=== PATIENT | male | born 1955 | race Caucasian/White ===

== ENCOUNTER 2017-10-05 02:25 | Observation (INO) | payer MEDICARE, OTHER ==
[~2017-10-05] VITALS: Ht 172.7 cm; Wt 89.6 kg
[2017-10-05] VITALS (10 sets, daily range): BP systolic 154–185; BP diastolic 81–88; PULSE 60–77; RESP 18–20; TEMP 97.2–98.8; O2SAT 95–99
[2017-10-05 01:22] LABS: TROPONIN I LESS THAN 0.02 NG/ML (0.02-0.05)
[~2017-10-05 02:25] MED LIST: ACETAMINOPHEN 500 MG CPLT PO PRN; AMLO2.5T PO; GABA600T PO; MOBI7.5T PO; MORPHINE SULFATE 4 MG/ML INJ IV PUSH PRN; NITROGLYCERIN 0.4 MG SL 25 TABS/BTL SL PRN; OXYC1CAP PO; SODIUM CHLORIDE 0.9% FLUSH 10 ML FLUSH IV FLUSH PRN
[2017-10-05] MEDS ORDERED: FAMOTIDINE 20 MG TAB PO ONE (03:30)
[2017-10-05] MEDS: ACETAMINOPHEN/HYDROcodone 325 MG/7.5 MG TAB PO PRN ×2 (03:43→08:40)
[2017-10-05 05:03] LABS: TROPONIN I LESS THAN 0.02 NG/ML (0.02-0.05)
[2017-10-05] MEDS: HEPARIN SODIUM - SQ 10,000 UNITS/ML VIAL SQ SCH ×3 (06:03→20:33)
[2017-10-05] MEDS: SODIUM CHLORIDE 0.9% FLUSH 10 ML FLUSH IV FLUSH SCH ×2 (08:41→20:32)
[2017-10-05] MEDS ORDERED: FAMOTIDINE 20 MG TAB PO SCH (09:00)
--- NOTE | 2017-10-05 09:04 | HHI.HP ---
[facility] [place] Unknown Admission Diagnosis Chest pain Diagnoses: Chief Complaint: Chest pain Travel History International Travel<30 Days: No Contact w/Intl Traveler <30 Da: No Traveled to Known Affected Are: No History of Present Illness This is a 62-year-old male patient with a known medical history of tobacco abuse who presented to the ED with complaints of not feeling well with chest pressure. Patient states that yesterday developed a left upper quadrant pain in his abdomen with associated shortness of breath and some left arm cramping and chest pressure. Patient states he took his blood pressure at home and was elevated and took an extra dose of his blood pressure medicine. At that time symptoms had improved. He does state that the chest pressure was in his midsternal chest, was intermittently sharp in nature and lasted roughly an hour. He denies any known alleviating or aggravating factors. He does admit to associated diaphoresis, denies any shortness of breath, nausea or vomiting. He denies ever having this type of pain before. He has never followed with a ship purser. Nor has he ever gotten a stress test in the past. He denies having any cardiac history except for hypertension and takes medicine for this which controls it well. Review of Systems Constitutional: COMPLAINS OF: Chills, DENIES: Fatigue, Fever Eyes: DENIES: Blurred vision, Diplopia Respiratory: DENIES: Cough, Sputum production, Shortness of breath Cardiovascular: COMPLAINS OF: Chest pain, Palpitations Gastrointestinal: DENIES: Abdominal pain, Black stools, Bloody stools, Constipation, Diarrhea, Nausea, Vomiting Musculoskeletal: DENIES: Joint pain Hematologic/lymphatic: DENIES: Bruising Psychiatric: DENIES: Anxiety Except as stated in HPI: all other systems reviewed are Neg Past Family Social History Past Medical History Tobacco abuse Hypertension Chronic back pain on narcotics Past Surgical History Denies any prior surgery. Reported Medications Active Reported Amlodipine (Amlodipine Besylate) 2.5 Mg Tab 2.5 Mg PO DAILY Oxycodone (Oxycodone HCl) 5 Mg Cap Unknown Dose PO Q4H PRN Gabapentin 600 Mg Tab 600 Mg PO BID Mobic (Meloxicam) 7.5 Mg Tab 7.5 Mg PO DAILY Allergies: Coded Allergies: No Known Allergies (Unverified , 10/04/17) Active Ordered Medications Current Medications Medications (Trade) Dose Ordered Sig/Jeffy Route Start Time Stop Time Status Last Admin (NS Flush) 2 ml UNSCH PRN IV FLUSH 10/05/17 00:30 (NS Flush) 2 ml BID IV FLUSH 10/05/17 09:00 10/05/17 08:41 (Tylenol) 500 mg Q4H PRN PO 10/05/17 00:30 (Nitrostat Sl) 0.4 mg Q5M PRN SL 10/05/17 00:30 (Heparin Inj) 5,000 units Q8HR SQ 10/05/17 06:00 10/05/17 06:03 (Pepcid) 20 mg Q12H PO 10/05/17 18:00 (Norvasc) 2.5 mg DAILY PO 10/05/17 10:00 10/05/17 10:52 (Neurontin) 600 mg BID PO 10/05/17 21:00 (Mobic) 7.5 mg DAILY PO 10/05/17 10:00 10/05/17 10:53 (Roxicodone) 5 mg Q4H PRN PO 10/05/17 09:15 10/05/17 10:52 (Aspirin Chew) 81 mg DAILY CHEW 10/05/17 10:00 10/05/17 10:52 (Pill Splitter) 1 ea UNSCH PRN OTHER 10/05/17 09:15 Family History Maternal medical history significant for DM and HTN Paternal medical history significant for TN at age of 70. Social History Admits 1/2 ppd since his teen years. Admits to drinking alcohol 3-4 x per week. Physical Exam Vital Signs Vital Signs Date Time Temp Pulse Resp B/P (MAP) Pulse Ox O2 Delivery O2 Flow Rate FiO2 10/05/17 08:05 99 21 10/05/17 08:00 97.2 63 18 154/83 (106) 96 10/05/17 04:40 66 10/05/17 03:40 96 21 10/05/17 02:35 98.0 60 20 185/81 (115) 96 Physical Exam GENERAL: Well-developed, well-nourished patient in [place]. SKIN: Warm and dry. No rash. HEAD: Normocephalic. Atraumatic. EYES: Pupils equal and round. No scleral icterus. No injection or drainage. ENT: No nasal bleeding or discharge. Mucous membranes pink and moist. NECK: Supple. Trachea midline. CARDIOVASCULAR: Regular rate and rhythm. S1, S2 noted. No murmur appreciated. No chest pain to palpation. RESPIRATORY: No accessory muscle use. Clear to auscultation. Breath sounds equal bilaterally. GASTROINTESTINAL: Abdomen soft, non-tender, nondistended. Normoactive bowel sounds x4. MUSCULOSKELETAL: No obvious deformities. Extremities without clubbing, cyanosis , or edema. NEUROLOGICAL: Awake and alert. No obvious cranial nerve deficits. Motor grossly within normal limits. 5/5 muscle strength in bilateral upper and lower extremities. Normal speech. PSYCHIATRIC: Appropriate mood and affect; insight and judgment normal. Laboratory Laboratory Tests Test 10/05/17 00:52 10/05/17 03:45 Total Creatine Kinase 174 168 Creatine Kinase MB 5.0 4.4 Troponin I LESS THAN 0.02 LESS THAN 0.02 Septic Shock Reassessment Septic shock perfusion: reassessment completed Caprini VTE Risk Assessment Caprini VTE Risk Assessment: Mod/High Risk (score >= 2) Caprini Risk Assessment Model Point Value = 1 Point Value = 2 Point Value = 3 Point Value = 5 Age 41-60 Minor surgery BMI > 25 kg/m2 Swollen legs Varicose veins or History of unexplained or recurrent spontaneous Oral contraceptives or hormone replacement Sepsis (< 1 month) Serious lung disease, including pneumonia (< 1 month) Abnormal pulmonary function Acute myocardial infarction Congestive heart failure (< 1 month) History of inflammatory bowel disease Medical patient at bed rest Age 61-74 Arthroscopic surgery Major open surgery (> 45 min) Laparoscopic surgery (> 45 min) Malignancy Confined to bed (> 72 hours) Immobilizing plaster cast Central venous access Age >= 75 History of VTE Family history of VTE Factor V Leiden Prothrombin [id number] Lupus anticoagulant Anticardiolipin antibodies Elevated serum homocysteine Heparin-induced thrombocytopenia Other congenital or acquired thrombophilia Stroke (< 1 month) Elective arthroplasty Hip, pelvis, or leg fracture Acute spinal cord injury (< 1 month) Prophylaxis Regimen Total Risk Factor Score Risk Level Prophylaxis Regimen 0-1 Low Early ambulation 2 Moderate Order ONE of the following: *Sequential Compression Device (SCD) *Heparin 5000 units SQ BID 3-4 Higher Order ONE of the following medications: *Heparin 5000 units SQ TID *Enoxaparin/Lovenox 40 mg SQ daily (WT < 150 kg, CrCl > 30 mL/min) *Enoxaparin/Lovenox 30 mg SQ daily (WT < 150 kg, CrCl > 10-29 mL/min) *Enoxaparin/Lovenox 30 mg SQ BID (WT < 150 kg, CrCl > 30 mL/min) AND/OR *Sequential Compression Device (SCD) 5 or more Highest Order ONE of the following medications: *Heparin 5000 units SQ TID (Preferred with Epidurals) *Enoxaparin/Lovenox 40 mg SQ daily (WT < 150 kg, CrCl > 30 mL/min) *Enoxaparin/Lovenox 30 mg SQ daily (WT < 150 kg, CrCl > 10-29 mL/min) *Enoxaparin/Lovenox 30 mg SQ BID (WT < 150 kg, CrCl > 30 mL/min) AND *Sequential Compression Device (SCD) Assessment and Plan Problem List: (1) Chest pain ICD Code: R07.9 - Chest pain, unspecified Assessment and Plan This is a 62-year-old male patient with a known medical history of tobacco abuse who presented to the ED with complaints of not feeling well with chest pressure. Patient states that yesterday developed a left upper quadrant pain in his abdomen with associated shortness of breath and some left arm cramping and chest pressure. Chest pain rule out ACS versus Patient has been admitted to the chest pain center for observation. Serial EKGs and serial troponins ordered for ruling out ACS purposes. Troponin trend flat. CXR reviewed showing no acute disease. Chest pain is now resolved. Patient was given aspirin daily. Morphine IV for pain. Patient restarted on home OxyContin. Lipid panel checked showing elevated cholesterol, started on atorvastatin. Nitroglycerin sublingual for chest pain as needed. A Lexiscan has been ordered to further rule out any ischemia. While patient was down in scan patient use test and does not want to continue with testing. States he wants to follow-up outpatient and then all of his symptoms have improved. Patient educated about importance of test and need to further evaluate for any ischemia. Patient is still adamant in refusing test and wants to leave. Patient has been ruled out for ACS, blood pressure elevated, given 1 dose of clonidine, this probably is due to the frustration of being here as well as not taking his medication. Patient has follow-up with PCP and and states he will follow-up. All symptoms have resolved. I will allow patient to discharge AMA. Hypertension, chronic: Continued home Norvasc. Monitor BP trends. Elevated, will add clonidine. Chronic back pain: Continued pain medications. DVT prophylaxis: SCDs. Heparin. Luzmaria Kwan Oct 05, 2017 09:04
[2017-10-05] MEDS ORDERED: PILL SPLITTER OTHER PRN (09:15)
[2017-10-05] MEDS: ASPIRIN 81 MG CHEW TAB CHEW SCH (10:52)
[2017-10-05] MEDS: amLODIPine BESYLATE 5 MG TAB PO SCH (10:52)
[2017-10-05] MEDS: MELOXICAM 7.5 MG TAB PO SCH (10:53)
[2017-10-05 14:09] LABS: CHOLESTEROL/ HDL RATIO 3.08 RATIO; HDL CHOLESTEROL 54.8 MG/DL (40.0-60.0)
[2017-10-05] MEDS ORDERED: cloNIDine HCL 0.1 MG TAB PO PRN (15:15)
[2017-10-05 16:24] LABS: ALBUMIN 3.9 GM/DL (3.4-5.0)
[2017-10-05 16:26] LABS: DIRECT BILIRUBIN ADULT 0.1 MG/DL (0.0-0.2)
[2017-10-05 16:28] LABS: INDIRECT BILIRUBIN 0.2 MG/DL (0.0-0.8); TOTAL BILIRUBIN ADULT 0.3 MG/DL (0.2-1.0)
[2017-10-05 16:29] LABS: TOTAL PROTEIN 8.2 GM/DL (6.4-8.2)
[2017-10-05] MEDS: FAMOTIDINE 20 MG TAB PO SCH (17:52)
[2017-10-05] MEDS: GABAPENTIN 300 MG CAP PO SCH (20:32)
[2017-10-05] MEDS ORDERED: ATORVASTATIN 40 MG TAB PO SCH (21:00)
[2017-10-06] VITALS: BP 164/90; PULSE 66; RESP 20; TEMP 97.8; O2SAT 95
[2017-10-06 04:00] VITALS: BP 157/92; PULSE 71; RESP 18; TEMP 97.9; O2SAT 96
[2017-10-06] MEDS: HEPARIN SODIUM - SQ 10,000 UNITS/ML VIAL SQ SCH ×2 (06:10→13:23)
[2017-10-06] MEDS: FAMOTIDINE 20 MG TAB PO SCH (06:10)
[2017-10-06 07:00] VITALS: PULSE 68
[2017-10-06 08:00] VITALS: BP 165/94; PULSE 64; RESP 18; TEMP 98; O2SAT 95
[2017-10-06] MEDS: amLODIPine BESYLATE 5 MG TAB PO SCH (08:31)
[2017-10-06] MEDS: ASPIRIN 81 MG CHEW TAB CHEW SCH (08:31)
[2017-10-06] MEDS: GABAPENTIN 300 MG CAP PO SCH (08:31)
[2017-10-06] MEDS: MELOXICAM 7.5 MG TAB PO SCH (08:32)
[2017-10-06] MEDS: SODIUM CHLORIDE 0.9% FLUSH 10 ML FLUSH IV FLUSH SCH (08:32)
[2017-10-06] MEDS ORDERED: ALPRAZolam 1 MG TAB PO ONE (09:00)
--- NOTE | 2017-10-06 09:03 | EKG ---
Date Performed: 10/05/2017 Time Performed: 04:01:38 PTAGE: 62 years EKG: SINUS BRADYCARDIA WITH FIRST DEGREE AV BLOCK WITH OCCASIONAL SUPRAVENTRICULAR PREMATURE COM PLEXES ABNORMAL ECG NO PREVIOUS TRACING DOCTOR: Shannon Cheung Interpretating Date/Time 10/06/2017 09:01:10
--- NOTE | 2017-10-06 09:05 | EKG ---
Date Performed: 10/05/2017 Time Performed: 00:59:13 PTAGE: 62 years EKG: SINUS BRADYCARDIA WITH FIRST DEGREE AV BLOCK MODERATE INTRAVENTRICULAR CONDUCTION DELAY ABN ORMAL ECG PREVIOUS TRACING : 10/04/2017 21.26 DOCTOR: Shannon Cheung Interpretating Date/Time 10/06/2017 09:02:30
--- NOTE | 2017-10-06 11:00 | HHI.PR ---
Subjective Remarks Follow-up chest pain and hypertension. Patient seen and examined walking around room. Awaiting stress test today. Patient requesting something for anxiety for the stress test. Blood pressure elevated, patient does take amlodipine 10 mg at home. Will update medication reconciliation. Otherwise patient has been doing well. Further hospitalization and treatment plan will depend on stress test results. Objective Vitals Vital Signs Date Time Temp Pulse Resp B/P (MAP) Pulse Ox O2 Delivery O2 Flow Rate FiO2 10/06/17 08:00 98.0 64 18 165/94 (117) 95 10/06/17 07:00 68 10/06/17 04:00 97.9 71 18 157/92 (113) 96 10/06/17 00:00 97.8 66 20 164/90 (114) 95 10/05/17 20:58 95 21 10/05/17 20:35 72 10/05/17 20:00 97.7 66 20 163/86 (111) 96 10/05/17 16:00 98.1 68 20 162/88 (112) 96 10/05/17 12:00 98.8 77 18 162/86 (111) 95 I/O 10/05/17 10/05/17 10/05/17 10/06/17 10/06/17 10/06/17 07:00 15:00 23:00 07:00 15:00 23:00 Intake Total 0 ml Balance 0 ml Intake Oral 0 ml # Voids 4 3 1 # Bowel Movements 0 0 Objective Remarks GENERAL: Well-developed, well-nourished patient in [place]. SKIN: Warm and dry. No rash. HEAD: Normocephalic. Atraumatic. EYES: Pupils equal and round. No scleral icterus. No injection or drainage. ENT: No nasal bleeding or discharge. Mucous membranes pink and moist. NECK: Supple. Trachea midline. CARDIOVASCULAR: Regular rate and rhythm. S1, S2 noted. No murmur appreciated. No chest pain to palpation RESPIRATORY: No accessory muscle use. Clear to auscultation. Breath sounds equal bilaterally. GASTROINTESTINAL: Abdomen soft, non-tender, nondistended. Normoactive bowel sounds x4. MUSCULOSKELETAL: No obvious deformities. Extremities without clubbing, cyanosis , or edema. NEUROLOGICAL: Awake and alert. No obvious cranial nerve deficits. Motor grossly within normal limits. 5/5 muscle strength in bilateral upper and lower extremities. Normal speech. PSYCHIATRIC: Appropriate mood and affect; insight and judgment normal. A/P Problem List: (1) Chest pain ICD Code: R07.9 - Chest pain, unspecified Assessment and Plan This is a 62-year-old male patient with a known medical history of tobacco abuse who presented to the ED with complaints of not feeling well with chest pressure. Patient states that yesterday developed a left upper quadrant pain in his abdomen with associated shortness of breath and some left arm cramping and chest pressure. Chest pain rule out ACS versus Patient has been admitted to the chest pain center for observation. Serial EKGs and serial troponins ordered for ruling out ACS purposes. Troponin trend flat. CXR reviewed showing no acute disease. Chest pain is now resolved. Patient was given aspirin daily. Morphine IV for pain. Patient restarted on home OxyContin. Lipid panel checked showing elevated cholesterol, started on atorvastatin. Nitroglycerin sublingual for chest pain as needed. A Lexiscan has been ordered to further rule out any ischemia. While patient was down in scan yesterday patient refused test and does not want to continue with testing. States he wants to follow-up outpatient and then all of his symptoms have improved. Patient educated about importance of test and need to further evaluate for any ischemia. Last evening patient was adamant to leave but convinced to stay due to importance of test, did not end up leaving AMA. Patient is also unable to do cardiac treadmill stress test due to chronic back pain. Therefore patient is willing to do cardiac stress test today. Xanax ordered 1 prior to scan. Further hospitalization treatment plan will depend on nuclear imaging results. Hypertension, chronic: Continued home Norvasc. Patient's home dose is actually 10 mg daily. Requested update med rec. Monitor BP trends. Clonidine as needed. Chronic back pain: Continued pain medications. DVT prophylaxis: SCDs. Heparin. Discharge Planning Patient underwent cardiac nuclear stress test and report reviewed showing 53% EF and no ischemia. Patient's chest pain and symptoms have resolved. Will DC with recs to follow up with PCP. Patient is stable at this time and agreeable to the plan. If symptoms persist or worsen patient has been encouraged to return to the ED. Luzmaria Kwan Oct 06, 2017 11:00
[2017-10-06 12:00] VITALS: BP 158/88; PULSE 66; RESP 18; TEMP 98; O2SAT 95
[2017-10-06] MEDS ORDERED: REGADENOSON INJ 0.4 MG/5 ML SYR IV ONE (12:03)
--- NOTE | 2017-10-06 12:51 | RADRPT ---
EXAM DATE/TIME: 10/06/2017 11:14 [place] COMPARISON: No previous studies available for comparison. INDICATIONS : Left abdomen pain with dyspnea radiating to the left arm and chest. Angina. DOSE: 27.2 mCi Tc99m Myoview at stress. 8.5 mCi Tc99m Myoview at rest. 0.4 mg Lexiscan STRESS SYMPTOMS: Lightheaded. EJECTION FRACTION: 53% MEDICAL HISTORY : Hypercholesterolemia. Hypertension. Smoker. SURGICAL HISTORY : Left shoulder. ENCOUNTER: Initial ACUITY: 1 day PAIN SCALE: 7/10 LOCATION: Left chest TECHNIQUE: The patient underwent pharmacologic stress with infusion of prescribed dose. Continuous ECG tracing was monitored during stress. Gated SPECT imaging was performed after stress and conventional SPECT i maging was performed at rest. The examination was performed on a SPECT/CT scanner, both attenuation and non-corrected datasets were reviewed. FINDINGS: DISTRIBUTION: The maximum perfused segment at stress is in the anterior lateral wall. There is a summed stress scor e of one. PERFUSION STUDY: The pattern of perfusion at stress is within normal limits. GATED STUDY: There is intact wall motion and thickening without hypokinetic or dyskinetic segments. CONCLUSION: 1. No fixed or reversible defects to suggest ischemia or infarction. 2. Normal wall motion and calculated ejection fraction. RISK CATEGORY: Low (<1% Annual Mortality Rate) Barry Ching MD on October 06, 2017 at 12:47 Board Certified Radiologist. This report was verified electronically.
[2017-10-06] MEDS ORDERED: ASPI-516 CHEW (13:11)
[2017-10-06] MEDS ORDERED: ATOR40TA16 PO (13:11)
[2017-10-06] MEDS ORDERED: AMLO10 PO (13:11)
--- NOTE | 2017-10-06 13:11 | HHI.DCPOC ---
Discharge Care Plan Diagnosis: (1) Chest pain (2) Hypertension Goals to Promote Your Health * To prevent worsening of your condition and complications * To maintain your health at the optimal level Directions to Meet Your Goals Take your medications as prescribed Follow your dietary instruction Follow activity as directed Keep your appointments as scheduled Take your immunizations and boosters as scheduled If your symptoms worsen call your PCP, if no PCP go to Urgent Care Center or Emergency Room Smoking is Dangerous to Your Health. Avoid second hand smoke Call the 24-hour hour crisis hotline for domestic abuse at Luzmaria Kwan Oct 06, 2017 13:11
--- NOTE | 2017-10-07 10:57 | TR ---
Date Performed: 10/06/2017 Time Performed: 11:50:24 DOCTOR: Jose Guerin DRUG LIST: CLINICAL HISTORY: CHEST PAIN REASON FOR TEST: Chest pain REASON FOR ENDING: OBSERVATION: CONCLUSION: COMMENTS: Lexiscan stress test was performed under standard four minute protocol. Radionuclide was injected one minute prior to ending the test. No electrocardiographic abormalities were present t o suggest ischemia. Nuclear imaging and interpretation are pending.
== END 2017-10-06 14:07 | disposition home or self-care (01) ==
LOC: PHEDDLT 02:25 → PH3A 02:35
PROVIDERS: ADMIT Hospitalist; ATTEND Hospitalist
DX: R07.89 Other chest pain (principal); I44.0 Atrioventricular block, first degree; F17.210 Nicotine dependence, cigarettes, uncomplicated; R25.2 Cramp and spasm; R10.12 Left upper quadrant pain; R06.02 Shortness of breath; R61 Generalized hyperhidrosis; I10 Essential (primary) hypertension; G89.29 Other chronic pain; R94.31 Abnormal electrocardiogram [ECG] [EKG]; M54.9 Dorsalgia, unspecified; Z83.3 Family history of diabetes mellitus; Z82.49 Family history of ischemic heart disease and other diseases of the circulatory system
CPT/HCPCS: 70450; 71046; 78452; 80053; 80061; 80076; 80307; 82550; 82552; 83690; 83735; 84484; 85025; 85610; 85730; 93005; 93017; 99285; A9502; G0378; J1644; J2785